=== PATIENT | male | born 1965 ===

== ENCOUNTER 2022-05-06 13:08 | Emergency (ER) | payer SELFPAY ==
[~2022-05-06] VITALS: Ht 165.1 cm; Wt 72.0 kg
[2022-05-06] MEDS ORDERED: ACETAMINOPHEN 500 MG TABLET PO ONE (14:30)
[2022-05-06 15:02] LABS: BASOPHILS % (AUTO) 0.5 % (0.0-2.0); EOSINOPHILS % (AUTO) 0.5 % (1.0-6.0); HEMATOCRIT 42.6 % (41-53); LYMPHOCYTES % (AUTO) 13.6 % (22.0-44.0); MEAN CORPUSCULAR HEMOGLOBIN 29.6 pg (26.0-34.0); MEAN CORPUSCULAR HGB CONC 32.8 G/dL (31.0-37.0); MEAN CORPUSCULAR VOLUME 90 fL (80-100); MONOCYTES # (AUTO) 0.4 K/uL (0.1-1.0); NEUTROPHILS # (AUTO) 5.8 K/uL (1.8-7.7); NEUTROPHILS % (AUTO) 80.4 % (40.0-70.0); PLATELET COUNT (AUTO) 269 K/uL (150-450); RED BLOOD CELL COUNT(AUTO) 4.72 MIL/uL (4.50-5.90); RED CELL DISTRIBUTION WIDTH 13.6 % (11.5-14.5)
[2022-05-06 15:16] LABS: ANION GAP 7 mmol/L (8-16); CALCIUM, TOTAL 9.5 mg/dL (8.8-10.5); CARBON DIOXIDE 28 mmol/L (22-29); CHLORIDE 104 mmol/L (98-107); CREATININE 1.09 mg/dL (0.60-1.30); GLUCOSE,RANDOM 121 mg/dL (70-110); POTASSIUM 4.3 mmol/L (3.5-5.1); SODIUM SERUM 139 mmol/L (136-145); UREA NITROGEN, BLOOD 14 mg/dL (7-18)
[2022-05-06 15:36] LABS: GLOMERULAR FILTR. RATE CALC > 60 mL/min (>60)
[2022-05-06 16:50] VITALS: BP 173/108
[2022-05-06] MEDS ORDERED: AMLO-258 PO (17:41)
== END 2022-05-06 18:49 | disposition home or self-care (01) ==
LOC: EMS 13:15
DX: I10 Essential (primary) hypertension (principal); G89.29 Other chronic pain; M79.605 Pain in left leg; M79.604 Pain in right leg; F20.9 Schizophrenia, unspecified
CPT/HCPCS: 71045; 80048; 85025; 93005; 99284; 99285; 36415-L1; 36415-TC